=== PATIENT | female | born 2000 | race Two or more races ===

== ENCOUNTER 2019-09-13 13:56 | Emergency (ER) | payer MEDICAID ==
[~2019-09-13] VITALS: Ht 154.9 cm; Wt 50.0 kg
[2019-09-13 13:58] VITALS: BP 122/78
== END 2019-09-13 14:29 | disposition home or self-care (01) ==
LOC: ER 13:57
DX: B34.9 Viral infection, unspecified (principal); R06.02 Shortness of breath
CPT/HCPCS: 99281